=== PATIENT | female | born 1960 | race Caucasian/White ===

== ENCOUNTER 2016-06-13 19:16 | Emergency (ER) | payer OTHER | END 2016-06-13 22:21 | disposition home or self-care (01) | LOC: ER 19:16 | DX: J45.909 Unspecified asthma, uncomplicated (principal); R55 Syncope and collapse; J44.9 Chronic obstructive pulmonary disease, unspecified; F32.9 Major depressive disorder, single episode, unspecified; F17.210 Nicotine dependence, cigarettes, uncomplicated; Z98.51 Tubal ligation status | CPT/HCPCS: 36415; 96374; J1885; Q9967 ==